=== PATIENT | male | born 1945 | race Two or more races ===

== ENCOUNTER 2021-12-04 10:39 | Outpatient (CLI) | payer MEDICARE | END 2021-12-04 23:59 | disposition home or self-care (01) | LOC: MSC 10:39 | PROVIDERS: ATTEND Internal Medicine | DX: I12.9 Hypertensive chronic kidney disease with stage 1 through stage 4 chronic kidney disease, or unspecified chronic kidney disease (principal); N18.30 Chronic kidney disease, stage 3 unspecified; E78.5 Hyperlipidemia, unspecified; E79.0 Hyperuricemia without signs of inflammatory arthritis and tophaceous disease; E83.9 Disorder of mineral metabolism, unspecified; M89.9 Disorder of bone, unspecified; N40.0 Benign prostatic hyperplasia without lower urinary tract symptoms; K22.70 Barrett's esophagus without dysplasia; Z79.899 Other long term (current) drug therapy ==